=== PATIENT | male | born 1955 | race Caucasian/White ===

== ENCOUNTER 2022-08-17 07:08 | Outpatient (CLI) | payer MEDICARE, OTHER, SELFPAY | END 2022-08-17 07:09 | disposition home or self-care (01) | PROVIDERS: PCP Family Medicine | DX: Z13.9 Encounter for screening, unspecified (principal) | CPT/HCPCS: 36415; 99001 ==

== ENCOUNTER 2023-02-16 07:02 | Outpatient (CLI) | payer MEDICARE, OTHER, SELFPAY | END 2023-02-16 07:03 | disposition home or self-care (01) | PROVIDERS: PCP Family Medicine; Visit Provider Family Medicine | DX: Z13.89 Encounter for screening for other disorder (principal) | CPT/HCPCS: 36415 ==

== ENCOUNTER 2024-02-13 07:53 | Outpatient (CLI) | payer MEDICARE, OTHER, SELFPAY | END 2024-02-13 07:54 | disposition home or self-care (01) | LOC: LAB 07:54 | PROVIDERS: PCP Family Medicine; Visit Provider Urology | DX: Z00.00 Encounter for general adult medical examination without abnormal findings (principal) | CPT/HCPCS: 36415 ==

== ENCOUNTER 2024-08-30 09:45 | Outpatient (RCR) | payer MEDICARE, OTHER, SELFPAY ==
--- OUTSIDE RECORDS SUMMARY | 2024-08-23 08:48 | XMS_ITS | Clinical Summary ---
Author Organization [facility] Address [place], [place] [address] Care Team Providers Care Recooperer Name Role Phone Gt Peña MD Primary Care Provider [phone] Allergies No known active allergies Medications MULTIVITAMIN TAB take 1 tablet by oral route once daily with food 0 8 Active aspirin (ECOTRIN) 81 mg enteric coated tablet Take 1 tablet. by mouth once weekly. 6 Active omeprazole (PRILOSEC) 40 mg Delayed-Release capsuleIndications: Gastroesophageal reflux disease, unspecified whether esophagitis present Take 1 Capsule (40 mg) by mouth once daily before a meal. 90 Capsule 4 4 Active atorvastatin (LIPITOR) 20 mg tabletIndications:O ther hyperlipidemia Take 1 Tablet (20 mg) by mouth at bedtime. 90 Tablet 4 4 Active levothyroxine (SYNTHROID) 100 mcg tabletIndications:P ostoperative hypothyroidism TAKE 1 1/2 TABLETS BY MOUTH TUESDAY; THEN 1 TABLET TUESDAY THROUGH TUESDAY 100 Tablet 4 4 Active methocarbamoL 750 mg tabletIndications:B ack muscle spasm Take 1 Tablet (750 mg) by mouth every 8 hours if needed for Muscle Spasm. Don't drive until at least 8 hours after you take this. 30 Tablet 1 4 Active Active Problems Problem Noted Date Diagnosed Date Prostate cancer 11/23/2021 Overview (11/26/2022): Confined to the Prostate. Status post Prostatectomy by the [facility] at [facility] 01/2021. Followed by [facility]. Postoperative hypothyroidism 10/02/2018 Graves disease 11/10/2017 Overview (12/05/2017): Weight loss of 15 lbs and double vision. Increased appetite, no other symptoms. 3 siblings with high and low thyroid. 10/2017: TSH < 0.01, FreeT4 1.72 11/2017: TSH < 0.01, FreeT4 1.62, FreeT3 6.43 (1.7-3.7), TSI 3.6, ++TPO ab. MRI Orbits: Bilateral Graves ophthalmopathy. 24 hour Iodine uptake 62% Pes anserinus tendinitis or bursitis 11/27/2014 Inguinal hernia without ment ion of obstruction or gangrene, bilateral, (not specified as recurrent) 11/20/2012 Overview (11/20/2012): Right inguinal hernia: very small. 11/20/2012 Lipid screening 11/22/2011 Colon polyp 12/25/2009 Overview (05/19/2020): Colonoscopy 12/2009 polyp repeat in 5 years Colonoscopy 12/2014 hyperplastic polyp repeat in 5 years Colonoscopy 04/2020 normal , repeat in 5 years Esophageal reflux 09/27/2007 Overview (09/27/2007): upper endoscopy 11/18/2003: Duodenitis & Esophagitis Routine general medical exam ination at a health care facility 09/27/2007 Overview (12/24/2009): colonoscopy 12/2004 Recheck 5 yrs Colonoscopy 12/2009 Recheck 5 yrs: Polyp Adenoma. Encounters Date Type Department Care Team Description 07/25/2024 10:50 AM SHOE ASSOCIATE Office Visit [facility] [address] [place] [address] Ubaldo Price MD Back Pain (Left sided- radiating down the leg, has been going on for the last month) 07/25/2024 Travel 07/06/2024 11:20 AM SHOE ASSOCIATE Office Visit [facility] [address] [place] [address] Gt Peña MD Musculoskeletal Problem (Back pain - started after sawing tree logs); Sinus Problem (Sinus pain x 2 weeks) 07/06/2024 Travel 07/02/2024 Telephone [facility] [address] [place], [place] [id number] Gt Peña MD Referral (ENT) from Last 3 Months Immunizations Name Administration Dates Next Due AMB Influenza, IIV4 PF (=>6 mos Flulaval,Fluzone Fluarix)(Flu Clinic Only) 05/30/2014 Amb Influenza, Inactivated A IIV4 (Age 65+ Years) Preserv Free 05/29/2020 Hepatitis B (Adult) 11/21/1992 Influenza A (H1N1), Inactiva allegra (Age >=3 Years) 07/22/2009 Influenza Virus, Unspecified 06/05/2019 Influenza, High-dose Inactivated 05/25/2024,08/2017 Influenza, High-dose Quadriv alent Inactivated 05/13/2023,05/26/2022,05/22/2021 Influenza, IIV3 (Age >=3 years) 06/22/20 12,06/20/2011,06/22/2009,2007,06/22/2007,07/20/2006,07/08/2005 Influenza, IIV4 06/09/2017,05/27/2016,05/29/2015 Pneumococcal Poly,23-Valent (Pneumovax) 10/10/2019 Pneumococcal conj 13-Valent (Prevnar 13) 06/18/2019 Td (Age >=7 Years) 08/09/2005 Tdap 03/01/2022,11/22/2011 Zoster (Shingrix-RZV, recombinant) 12/21/2018, Family History Medical History Relation Name Comments Cancer Brother 1 Matt melanoma/1993; at age 40 Cancer-prostate Brother 2 Ivan Prostatectom y, monitoring Other Father Jacinto of an acci dent at 65 Other Mother Vinod of an acci dent at 44 Thyroid Disease Sister 1 Kailey Cancer Sister 2 Shobha Thyroid Disease Sister 2 Shobha Cancer Sister 3 Kiersten Lymphoma; doing well after Chemotherapy Thyroid Disease Sister 3 Kiersten Anesthesia Problem No Family History Blood Disease No Family History Relation Name Status Comments Brother 1 Matt (Age 40) Brother 2 Ivan Alive Father Jacinto (Age 60s) Fall Mother Vinod (Age 40s) Tractor A ccident Sister 1 Kailey Alive Sister 2 Shobha Alive Sister 3 Kiersten Alive Social History Tobacco Use Types Packs/Day Years Used Date Smoking Tobacco: Never Smokeless Tobacco: Never Tobacco Cessation:Counseling Given: Yes Alcohol Use Standard Drinks/Week Comments No 0 (1 standard drink = 0.6 oz pur e alcohol) [facility] Utilities Answer Date Recorded Do you have trouble paying f or utilities (for example, heat, electricity, water, phone)? Yes 01/11/2024 PHQ-2 Answer Date Recorded PHQ-2 TOTAL SCORE 0 01/11/2024 Social Connections Answer Date Recorded Do you often feel lonely or isolated from those around you? 0 01/11/2024 Financial Resource Strain Answer Date R ecorded Difficulty of Paying Living Expenses 3 01/11/2024 Difficulty of Paying Living Expenses Not on file 01/11/2024 Food Insecurity Answer Date Recorded Do you worry your food will run out before you are able to buy more? 1 01/11/2024 Transportation Needs Answer Date Record ed Does lack of transportation keep you from medica l appointments? 1 01/11/2024 Does lack of transportation keep you from work, meetings or getting things that you need? 1 01/11/2024 Housing Stability Answer Date Recorded What is your housing situation today? 1 01/11/2024 Sex and Gender Information Value Date Recorded Sex Assigned at Not on file Legal Sex Male 5:18 AM SHOE ASSOCIATE Gender Identity Not on file Sexual Orientation Not on file Occupation Industry Job Start Date Job End Date Retired Not on file Not on file Not on file Obstetrics History Last Filed Vital Signs Vital Sign Reading Time Taken Comments Blood Pressure 130/80 07/25/2024 10:47 AM SHOE ASSOCIATE Pulse 65 07/25/2024 10:47 AM SHOE ASSOCIATE Temperature 36.6 C (97.8 F) 07/06/2024 11:14 AM SHOE ASSOCIATE Respiratory Rate 18 10/01/2019 8:50 AM SHOE ASSOCIATE Oxygen Saturation 97% 07/25/2024 10: 47 AM SHOE ASSOCIATE Inhaled Oxygen Concentration - - Weight 79.3 kg (174 lb 12.8 oz) 024 10:47 AM SHOE ASSOCIATE Height 170.2 cm (5' 7) 04/27/2024 9:43 AM CDT Body Mass Index 27.38 04/27/2024 9:43 AM CDT Plan of Treatment Health Maintenance Due Date Last Done Comments Depression screening for age 12+ 01/10/2025 01/11/2024, 11/26/2022, 11/23/2021, Additional history exists Medicare Wellness for age 65+ 01/11/2025, 11/26/2022, 11/23/2021, Additional history exists BMI (ht and wt on same day) for age 18+ 04/27/2025 04/27/2024, 01/11/2024, 11/26/2022, Additional history exists Colonoscopy through age 75 05/19/202505/19, 05/19/2020, 05/19/2020, Additional history exists RSV vaccine for adults or (1 - 1-dose 75+ series) 2028 Lipids for age 45-75 01/31/2029 02/01/2024, 11/26/2022, 11/23/2021, Additional history exists Tetanus booster 03/01/2032 03/01/2022, 04/0 09/2011, 08/09/2005 Zoster (shingles) series for age 50+ Completed 12/21/2018, 10/02/2018 Pneumococcal series for age 50+ Completed , 06/18/2019 Hepatitis C screening for ag e 18-79 Completed 10/23/2020 Tdap Completed 03/01/2022, 11/22/2011 Influenza for age 65+ Completed 05/25/2024 , 05/13/2023, 05/26/2022, Additional history exists COVID-19 vaccine series Completed 06/28/20 24, 05/30/2023, 06/18/2022, Additional history exists Procedures Procedure Name Priority Date/Time Associated Diagnosis Comments LIPID PANEL W REFLEX MEASURED LDL Routine 02/01/2024 9:30 AM CDT Other hyperlipidemia HCV RNA QUANT Routine 10/23/2020 9:36 AM SHOE ASSOCIATE Encounter for hepatitis C screening test for low risk patient COLONOSCOPY SCREENING Routine 05/19/2020 12:00 AM CDT History of colon polyps from Last 3 Months or Most Recently Relevant to Health Maintenance Results * LIPID PANEL W REFLEX MEASURED LDL (02/01/2024 9:30 AM CDT) CHOLESTEROL,TOTAL 121 100 - 199 mg/dL 02/01/2024 6:12 PM CDT [facility] Comment: Cholesterol, Total Reference Ranges Desirable <200 mg/dL Borderline 200-239 mg/dL High >=240 mg/dL TRIGLYCERIDES 75 <150 mg/dL 02/01/2024 6:12 PM CDT [facility] HDL CHOLESTEROL 57 >40 mg/dL 6:12 PM CDT [facility] NON-HDL CHOLESTEROL 64 <145 mg/dl 02/01/2024 6:12 PM CDT [facility] CHOL/HDL RATIO 2.12 <4.50 02/01/2024 6:12 PM CDT [facility] LDL CHOLESTEROL 49 <=130 mg/dL 02/01/2024 6:12 PM CDT [facility] VLDL CHOLESTEROL 15 <=30 mg/dL 02/01/2024 6:12 PM CDT [facility] PROVIDER ORDERED STATUS RANDOM 02/01/2024 6:12 PM CDT [facility] Blood BLOOD SPECIMEN / Unknown Venipuncture / Unknown 02/01/2024 9:30 AM CDT 02/01/2024 9:31 AM CDT us Gt Peña MD CHEMISTRY Final Resu lt [facility] [address] [place] [place] [address], * HCV RNA QUANT (10/23/2020 9:36 AM SHOE ASSOCIATE) HCV RNA RT-PCR HCV RNA not detected HCV RNA not detected IU/mL 10/24/2020 12:46 PM SHOE ASSOCIATE [facility] Blood BLOOD SPECIMEN / Unknown Venipuncture / Unknown 10/23/2020 9:36 AM SHOE ASSOCIATE 10/23/2020 9:36 AM SHOE ASSOCIATE Narrative [facility] - 10/24/2020 12:46 PM SHOE ASSOCIATE Method: Luis Daniel HCV Test us Gt Peña MD SEND OUTS Final Resu lt [facility] [address] [place] [address], * COLONOSCOPY SCREENING (05/19/2020 12:00 AM CDT) us Arash Nichols MD GI PROCEDURE ORD Final Re sult from Last 3 Months or Most Recently Relevant to Health Maintenance Insurance MEDICARE PB ONLY MEDICARE PART A HB ONLY Care Teams Recooperer Relationship Specialty Start Date End Date Gt Peña MD [address] [place] [address] PCP - General Family Practice 05/23/13
--- OUTSIDE RECORDS SUMMARY | 2024-08-23 08:48 | XMS_ITS ---
Author Organization [facility] Address [address] [place] [address] Care Team Providers Care Dress Fitter Name Role Phone Unavailable Unavailable Unavailable Surgery Details Not on file Complications Check Surgery Details section. Procedure Estimated Blood Loss Check Surgery Details section. Procedure Findings Check Surgery Details section. Procedure Specimens Taken Check Surgery Details section.
--- OUTSIDE RECORDS SUMMARY | 2024-08-23 08:48 | XMS_ITS | Clinical Summary ---
Author Organization [facility] Address [address] [place] [address] Care Team Providers Care Ice Skating Teacher Name Role Phone Elsewhere, Pcp Primary Care Provider Unavailabl e Source Comments Patient records contain information from all sites at [facility]. For routine questions regarding patient records, call [phone] during business hours, M-F 8:00 AM - 5:00 PM Central Time. Record requests for emergency care only can be directed to [phone] at any time.[facility] Allergies Active Allergy Reactions Criticality Noted Date Comments Sulfa (Sulfonamide Antibiotics) Other (see comments) Low 02/06/2021 Chills, flushing [place] Pollen Itching,Other (see comments) 12/26/2017 Watery eyes nasal congestion Medications * This document contains information received from the source organization and may not represent a complete record from that organization. multivitamin tablet Take 1 tablet by mouth daily. 6 Active omeprazole (PriLOSEC) 40 mg capsule Take 40 mg by mouth daily. 6 Active carboxymethylce llulose (REFRESH TEARS) 0.5 % ophthalmic solution Administer 1 drop into both eyes 3 (three) times a day as needed for dry eyes. Active levothyroxine (SYNTHROID, LEVOTHROID) 100 mcg tablet Take 1 tablet (100 mcg total) by mouth every morning before breakfast. 100 mcg Tuesday-Tuesday; 150 mcg Tuesday 180 tablet 3 9 Active Additional Information Patient taking differently: (No dose reported), oral Daily before morning meal, 100 mcg Tuesday-Tuesday; 150 mcg Tuesday, Informant: Self, Reported on 01/28/2021 acetaminophen (TYLENOL) 500 mg tablet Take 2 tablets (1,000 mg total) by mouth every 6 (six) hours as needed for pain. 30 tablet 1 Active atorvastatin (LIPITOR) 20 mg tablet Take 1 tablet by mouth at bedtime. 3 Active levothyroxine (SYNTHROID, LEVOTHROID) 100 mcg tablet Take 100 mcg by mouth. 3 Active carboxymethylce llulose-glyceri n (Refresh Optive) 0.5-0.9 % ophthalmic solution 1 drop 4 (four) times a day as needed for dry eyes. Active amoxicillin (AMOXIL) 875 mg tablet Take 875 mg by mouth 2 (two) times a day. 3 Active Active Problems Problem Noted Date Diagnosed Date Dilatation Ascending Aorta 01/27/2021 Overview (01/27/2021): 42 mm per Echo June 2020 Abnormal Echocardiogram 01/27/2021 Overview (01/27/2021): Sigmoid ventricular septum with basal septal prominence: 16 mm. No regional wall motion Abnormalities. Echocardiogram June 2020. 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 Exotropia Alternating 12/26/2017 Cataract Senile Cortical Bilateral 12/26/2017 Gastroesophageal Reflux Disease 12/26/2017 Polyp Colon 12/25/2009 Overview (12/26/2017): Overview: Colonoscopy 12/2009 polyp repeat in 5 years Colonoscopy 12/2014 hyperplastic polyp repeat in 5 years Graves Disease Personal History Resolved Problems Problem Noted Date Diagnosed Date Resolved Date Graves' Disease 12/26/2017 01/27/2021 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 11/20/2012 Family History Medical History Relation Name Comments Melanoma Brother Cancer Sister Thyroid disease Sister Amblyopia Neg Hx Blindness Neg Hx Cataracts Neg Hx Diabetes Neg Hx Glaucoma Neg Hx Hypertension Neg Hx Macular degeneration Neg Hx Retinal degeneration Neg Hx Retinal detachment Neg Hx Strabismus Neg Hx Stroke Neg Hx Vision loss Neg Hx Relation Name Status Comments Brother Sister Social History Tobacco Use Types Packs/Day Years Used Date Smoking Tobacco: Never Smokeless Tobacco: Never Tobacco Cessation:Counseling Given: Not Answered Alcohol Use Standard Drinks/Week Comments No 0 (1 standard drink = 0.6 oz pur e alcohol) [facility] Utilities Answer Date Recorded In the past 12 months has th [employer] electric, gas, oil, or water company threatened to shut off services in your home? No 02/15/2024 Social Connection and Isolation Panel [NHANES] A nswer Date Recorded In a typical week, how many times do you talk on the phone with family, friends, or neighbors? Patient declined 01/27/2021 How often do you get togethe r with friends or relatives? Patient declined 01/27/2021 How often do you attend restoration or jainism serv ices? Patient declined 01/27/2021 Do you belong to any clubs o r organizations such as restoration groups, unions, fraternal or athletic groups, or school groups? No 01/27/2021 How often do you attend meet ings of the clubs or organizations you belong to? Patient declined 01/27/2021 Are you , , di vorced, , never , or living with a partner? 01/27/2021 AUDIT-C Answer Date Recorded Q1: How often do you have a drink containing alc ohol? Patient declined 01/27/2021 Average Number of Drinks Not on file 021 Frequency of Binge Drinking Not on file 03/2021 Overall Financial Resource Strain (CARDIA) Answe r Date Recorded How hard is it for you to pa y for the very basics like food, housing, medical care, and heating? Patient declined 01/27/2021 [facility] [place] of Occupat ional Health - Occupational Stress Questionnaire Answer Date Recorded Do you feel stress - tense, restless, nervous, or anxious, or unable to sleep at night because your mind is troubled all the time - these days? Patient declined 01/27/2021 Exercise Vital Sign Answer Date Recorde d On average, how many days pe r week do you engage in moderate to strenuous exercise (like a brisk walk)? 6 days 02/15/2024 On average, how many minutes do you engage in exercise at this level? 50 min 02/15/2024 Hunger Vital Sign Answer Date Recorded Within the past 12 months, y ou worried that your food would run out before you got the money to buy more. Never true 02/15/20 Within the past 12 months, t he food you bought just didn't last and you didn't have money to get more. Never true 02/15/2024 PRAPARE - Transportation Answer Date Re corded In the past 12 months, has l ack of transportation kept you from medical appointments or from getting medications? No 01/21 In the past 12 months, has l ack of transportation kept you from meetings, work, or from getting things needed for daily living? No 02/15/2024 Nutrition Answer Date Recorded On average, how many serving s of fruits and vegetables do you eat per day (serving size is equal to 1 cup or approximately the size of a tennis ball)? 0-2 02/15/2024 Dental Answer Date Recorded Dental: Regular Dentist Unknown 02/10/20 Employment Answer Date Recorded Employment status Retired 02/15/2024 Housing Stability Answer Date Recorded What is your living situation today? [facility] 02/15/2024 Education Answer Date Recorded What is the highest level of school you have completed or the highest degree you have received? 12th grade 01/27/2021 Sex and Gender Information Value Date Recorded Sex Assigned at Male 02/15/2024 9:08 PM CDT Legal Sex Male 10:13 PM MOUNTER SMOKING PIPE Gender Identity Male 05/15/2018 3:52 PM CDT Sexual Orientation Straight 05/15/2018 3: 52 PM CDT Last Filed Vital Signs Vital Sign Reading Time Taken Comments Blood Pressure 112/79 04/09/2021 11:15 AM CDT Pulse 57 04/09/2021 11:15 AM CDT Temperature 36.3 C (97.3 F) 04/09/2021 11:15 AM CDT Respiratory Rate 15 04/09/2021 11:15 AM CDT Oxygen Saturation 93% 04/09/2021 11:15 AM CDT Inhaled Oxygen Concentration - - Weight 82.2 kg (181 lb 3.5 oz) 04/09/2021 7:48 A M CDT Height 169 cm (5' 6.54) 04/09/2021 7:48 AM CDT Body Mass Index 28.78 04/09/2021 7:48 AM CDT Plan of Treatment Upcoming Encounters Date Type Department Care Team (Late st Contact Info) Description 09/11/2024 1:45 PM MOUNTER SMOKING PIPE Office Visit Department of Dermatology in [address] [phone] Angel Jones M.D. [address] [place] [phone] Discharge Disposition: Home or Self Care Health Maintenance Due Date Last Done Comments CT Colonography 1955 Cologuard 1955 Hepatitis C Screening 1955 Depression Screening (Annual PHQ-2) 08/22/2023 Fall Risk Screen (Annual) 08/22/2023 COVID-19 Vaccine ( season) 2024 05/30/2023, 06/18/2022, 01/01/2022, Additional history exists Influenza Vaccine (#1) 2024 , 05/26/2022, 05/22/2021, Additional history exists Thyroid Stimulating Hormone (TSH) test for thyroid function 01/31/2025 02/01/2024, 11/26/2022, 11/23/2021, Additional history exists Colonoscopy 05/19/2025 05/19/2020 Colorectal Cancer Surveillance 05/19/2025 Fasting Glucose for Diabetes Screening 01/31/2027 02/01/2024, 11/26/2022, 11/23/2021, Additional history exists DTaP,Tdap,and Td Vaccines (3 - Td or Tdap) 03/01/2032 03/01/2022, 11/22/2011, 08/09/2005 Zoster Vaccines Completed 12/21/2018, 10/02/2018 Pneumococcal vaccine (50+ years) Completed 10/10/2019, 06/18/2019 IPV Vaccines Aged Out No longer eligi ble based on patient's age to complete this topic Medical Devices Implanted Type Area Accredited Farm Manager Device Identifier Shelf Expiration Date Model / Serial / Lot [facility] [id number] Implanted:Qty : 1 on 01/28/2021 by George Bird M.D. at [facility] Hardware e.g. pins/screws/ rods [employer] [id number] 10/06/2025 [id number] / / [id number] [facility] [place] - [id number] Implanted:Qty : 1 on 01/28/2021 by George Bird M.D. at [facility] Hardware e.g. pins/screws/ rods [employer] [id number] 09/30/2025 [id number] / / [id number] [facility] - [id number] Implanted:Qty : 1 on 01/28/2021 by George Bird M.D. at [facility] Hardware e.g. pins/screws/ rods [employer] [id number] 09/30/2025 [id number] / / [id number] [facility] - [id number] Implanted:Qty : 1 on 01/28/2021 by George Bird M.D. at [facility] Hardware e.g. pins/screws/ rods [employer] [id number] 10/06/2025 [id number] / / [id number] Procedures Procedure Name Priority Date/Time Associated Diagnosis Comments BASIC METABOLIC PANEL, S/P Routine 01/27/2021 2:06 PM CDT Primary Malignant Neoplasm Of Prostate (HCC) THYROID-STIMULATING HORMONE-SENSITIVE (S-TSH) Routine 03/08/2019 7:11 AM CDT Graves' Disease from Last 3 Months or Most Recently Relevant to Health Maintenance Results * (ABNORMAL) Basic Metabolic Panel (01/27/2021 2:06 PM CDT) Pathologist [facility] Potassium, S 4.1 3.6 - 5.2 mmol/L 01/27/2021 2:55 PM CDT DTL Sodium, S 146(H) 135 - 145 mmol/L 01/27/2021 2:55 PM CDT DTL Chloride, S 110(H) 98 - 107 mmol/L 01/27/2021 2:55 PM CDT DTL Bicarbonate, S 26 22 - 29 mmol/L 01/27/2021 2:55 PM CDT DTL Anion Gap 10 7 - 15 01/27/2021 2:55 PM CDT DTL BUN (Blood Urea Nitrogen), S 13 8 - 24 mg/dL 01/27/2021 2:55 PM CDT DTL Creatinine 1.17 0.74 - 1.35 mg/dL 01/27/2021 2:55 PM CDT DTL eGFR-Non Black/ 64 >=60 mL/min/BSA 01/27/2021 2:55 PM CDT DTL Comment: ----ADDITIONAL INFORMATION---- Estimated GFR calculated using the 2009 CKD_EPI creatinine equation. eGFR-Black/Afri can Burmese 74 >=60 mL/min/BSA 01/27/2021 2:55 PM CDT DTL Comment: ----ADDITIONAL INFORMATION---- Estimated GFR calculated using the 2009 CKD_EPI creatinine equation. Calcium, Total, S 9.0 8.8 - 10.2 mg/dL 01/27/2021 2:55 PM CDT DTL Glucose, S 87 70 - 140 mg/dL 01/27/2021 2:55 PM CDT DTL Blood (Blood, Venous) 01/27/2021 2:06 PM CDT 01/27/2021 2:23 PM CDT Jose Johnson APRNNLalitoP., D.N.PLalito LAB BLOOD AD D-ON Final Result Performing Organization Address [facility] Co de Phone Number [facility] [address] [place] [address], [facility] DTL [facility] [address] [place] [address] * S-TSH (Thyroid-Stimulating Hormone - Sensitive) (03/08/2019 7:11 AM CDT) TSH, Sensitive 1.7 0.3 - 4.2 mIU/L 03/08/2019 8:23 AM CDT Blood (Blood, Venous) 03/08/2019 7:11 AM CDT 03/08/2019 7:38 AM CDT Amador Bello M.D. LAB BLOOD ADD-ON Final R esult Performing Organization Address City/[facility] Co de Phone Number [facility] [address] [place], [place] [id number] [place] [address] from Last 3 Months or Most Recently Relevant to Health Maintenance Insurance [employer] KAREL OSEGUERA [id number] Advance Directives For more information, please contact: [phone] * Full Code (Latest Code Status on File) Date Activated Date Inactivated Comments 01/28/2021 5:25 PM 01/29/2021 3:43 PM Question Answer Comments Full Code: Discussed * Full Code Date Activated Date Inactivated Comments 05/29/2018 4:22 PM 05/30/2018 3:23 PM Question Answer Comments Full Code: Discussed Care Teams Ice Skating Teacher Relationship Specialty Start Date End Date Elsewhere, Pcp PCP - General Family Medicine 01/26/21
--- OUTSIDE RECORDS SUMMARY | 2024-08-23 08:48 | XMS_ITS | Referral Summary ---
Author Organization [facility] Address [address] [place] [address] Care Team Providers Care Blood Typer Name Role Phone Elsewhere, Pcp Primary Care Provider Unavailabl e Source Comments Patient records contain information from all sites at [facility]. For routine questions regarding patient records, call [phone] during business hours, M-F 8:00 AM - 5:00 PM Central Time. 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 11/20/2012 Social History Tobacco Use Types Packs/Day Years Used Date Smoking Tobacco: Never Smokeless Tobacco: Never Tobacco Cessation:Counseling Given: Not Answered Alcohol Use Standard Drinks/Week Comments No 0 (1 standard drink = 0.6 oz pur e alcohol) [facility] Utilities Answer Date Recorded In the past 12 months has th e electric, gas, oil, or water company threatened [...] declined 01/27/2021 How often do you attend anabaptist or adventism serv ices? Patient declined 01/27/2021 Do you belong to any clubs o r organizations such as anabaptist groups, unions, fraternal or athletic groups, or [...] medical care, and heating? Patient declined 01/27/2021 [facility] of Occupat ional Health - Occupational Stress [...] your living situation today? I have a [facility] place to live 02/15/2024 Education Answer Date Recorded What is the highest level of school you have completed or the highest degree you have received? 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 [address] [place] [phone] Discharge Disposition: Home or Self Care Medical Devices Implanted Type Area Fur Blowing Machine Operator Device Identifier Shelf Expiration Date Model / Serial / Lot Renee rashid Salas - [id number] Implanted:Qty : 1 on 01/28/2021 by George Bird M.D. at [facility] Hardware e.g. pins/screws/ rods [employer] [id number] 10/06/2025 [id number] / / [id number] Renee Salas Md - [id number] Implanted:Qty : 1 on 01/28/2021 by George Bird M.D. at [facility] Hardware e.g. pins/screws/ rods [employer] [id number] 09/30/2025 [id number] / / [id number] Renee Salas Lg - [id number] Implanted:Qty : 1 on 01/28/2021 by George Bird M.D. at [facility] Hardware e.g. pins/screws/ rods [employer] [id number] 09/30/2025 [id number] / / [id number] Clp Hmol Plmr Lg - [id number] Implanted:Qty : 1 on 01/28/2021 by George Bird M.D. at [facility] Hardware e.g. pins/screws/ rods [employer] [id number] 10/06/2025 [id number] / / [id number] Procedures Procedure Name Priority Date/Time Associated Diagnosis Comments BASIC METABOLIC PANEL, S/P Routine 01/27/2021 2:06 PM CDT Primary Malignant Neoplasm Of Prostate (HCC) THYROID-STIMULATING HORMONE-SENSITIVE (S-TSH) Routine 03/08/2019 7:11 AM CDT Graves' Disease from Last 3 Months or Most Recently Relevant to Health Maintenance Results * (ABNORMAL) Basic Metabolic Panel (01/27/2021 2:06 PM CDT) Potassium, S 4.1 3.6 - 5.2 mmol/L [...] the 2009 CKD_EPI creatinine equation. eGFR-Black/Afri can Ghanaian 74 >=60 mL/min/BSA 01/27/2021 2:55 PM CDT DTL Comment: ----ADDITIONAL INFORMATION---- Estimated GFR calculated using the 2009 CKD_EPI creatinine equation. Calcium, Total, S 9.0 8.8 - 10.2 mg/dL 01/27/2021 2:55 PM CDT DTL Glucose, S 87 70 - 140 mg/dL 01/27/2021 2:55 PM CDT DTL Blood (Blood, Venous) 01/27/2021 2:06 PM CDT 01/27/2021 2:23 PM CDT Demi Mo APRN, C.N.P., D.N.P. LAB BLOOD AD D-ON Final Result Performing Organization Address [facility]/ZIP Co de Phone Number [facility] [address] [facility] [address] [place] [address] * S-TSH (Thyroid-Stimulating Hormone - Sensitive) (03/08/2019 7:11 AM CDT) TSH, Sensitive 1.7 0.3 - 4.2 mIU/L 03/08/2019 8:23 AM CDT Blood (Blood, Venous) 03/08/2019 7:11 AM CDT 03/08/2019 7:38 AM CDT Amador Bello M.D. LAB BLOOD ADD-ON Final R esult Performing Organization Address City/[facility]/ZIP Co de Phone Number [facility] [address] from Last 3 Months or Most Recently Relevant to Health Maintenance Insurance [employer] Advance Directives For more information, please contact: [phone] * Full Code (Latest Code Status on File) Date Activated Date Inactivated Comments 01/28/2021 5:25 PM 01/29/2021 3:43 PM Question Answer Comments Full Code: Discussed * Full Code Date Activated Date Inactivated Comments 05/29/2018 4:22 PM 05/30/2018 3:23 PM Question Answer Comments Full Code: Discussed Care Teams Blood Typer Relationship Specialty Start Date End Date Elsewhere, Pcp PCP - General Family Medicine 01/26/21
== END 2024-10-25 11:38 | disposition home or self-care (01) ==
PROVIDERS: PCP Family Medicine; Visit Provider Family Medicine
DX: M62.830 Muscle spasm of back (principal); M54.50 Low back pain, unspecified; Z51.89 Encounter for other specified aftercare
CPT/HCPCS: 97110; 97112; 97140; 97161; 97530

== ENCOUNTER 2025-06-28 07:03 | Outpatient (CLI) | payer MEDICARE, OTHER, SELFPAY ==
--- NOTE | 2025-06-28 08:24 | P.ANES_ITS ---
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
--- NOTE | 2025-06-28 08:24 | W.ANESCHARGE ---
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
--- NOTE | 2025-06-28 10:09 | P.ANES_ITS ---
Anesthesia Charges Start Date/Time Anesthesia Start Date: 06/28/25 Anesthesia Start Time: 07:56 Stop Date/Time Anesthesia Stop Date: 06/28/25 Anesthesia Stop Time: 08:22 Summary Extremes of Age - Over 70 or under 1: MDA Coding CPT Codes CPT Codes: ANES LWR INTST NDSC NOS - 21417 ([id number]) QK - EQUIPMENT OPERAT0R 2-4 CNCRNT ANES PROC, QX - IAP DISPLAYS ANALYST SVC W/ MD MED DIRECTION, P2 - PATIENT W/MILD SYST DISEASE Additional Codes: Summary - Extremes of Age - Over 70 or under 1: SWETA ([id number])
== END 2025-06-28 07:04 | disposition home or self-care (01) ==
LOC: OP CLINIC 07:03
PROVIDERS: PCP Family Medicine; Visit Provider Internal Medicine Gastroenterology
DX: Z12.11 Encounter for screening for malignant neoplasm of colon (principal); D12.8 Benign neoplasm of rectum; K57.30 Diverticulosis of large intestine without perforation or abscess without bleeding; Z86.0101 Personal history of adenomatous and serrated colon polyps
CPT/HCPCS: 00811; 00812; 45385; 99100; J2704